=== PATIENT | male | born 1970 | race Caucasian/White ===

== ENCOUNTER 2018-01-11 18:47 | Emergency (ER) | payer BC, OTHER ==
[~2018-01-11] VITALS: Ht 188 cm; Wt 113.3 kg
[~2018-01-11 18:47] MED LIST: AMB10 PO; ATV/1 PO; CLC100 PO; WELBUTRIN PO
[2018-01-11 18:56] VITALS: TEMP 36.6; Ht 188 cm; Wt 113.3 kg
--- NOTE | 2018-01-11 19:07 | EMERGENCY ROOM VISIT NOTE ---
History Report prepared by Elvira: Feltcher Sykes Under the Supervision of: Dr. Felix Jackson M.D. First contact with patient: 18:58 Chief Complaint: SYNCOPE (NEAR SYNCOPE) Stated Complaint: FAINTED History of Present Illness The patient is a 47 year old male who presents to the Emergency Room via EMS with complaints of a syncopal episode that occurred prior to arrival this evening. He states that he had a dental implant surgery yesterday for a sinus cavity with Dr. Pérez, and says that he is on his second dose of his Z-pack. Per the patient's , the patient has not looked well today, and has been in bed all day in a lot of pain. The patient is taking Tylenol Codeine. He says that he felt hot before passing out in his home today, and was sweating. He was on his way to take a shower to cool down, but did not make it, and passed out and fell, and hit his right elbow. He states that he thinks he is dehydrated, and has not been drinking enough water since the surgery. The patient notes that upon ambulance arrival, he walked out and was fine. He denies any shoulder pain, wrist pain, abdominal pain, or swallowing difficulties. 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 Review of Systems See HPI for pertinent positives & negatives. A total of 10 systems reviewed and were otherwise negative. Past Medical & Surgical Medical Problems: (1) HTN (hypertension) Family History Diabetes mellitus Social History Smoking Status: Never Smoker Alcohol Use: none Drug Use: none Marital Status: Housing Status: lives with family Occupation Status: employed Current/Historical Medications Scheduled Aspirin (Aspirin Ec), 81 MG PO DAILY Loratadine (Claritin), 10 MG PO DAILY Metoprolol Tartrate (Lopressor), 25 MG PO BID Metronidazole (Flagyl), 500 MG PO BID Mometasone Furoate (Asmanex Twisthaler 60 Met), 1 PUFF INH DAILY Penicillin V Potassium (Veetids), 500 MG PO QID Scheduled PRN Albuterol Sulfate (Proair Respiclick), 2 PUFFS INH UD PRN for SOB/Wheezing Oxycodone Immediate Rel Tab (Roxicodone Ir), 1-2 TAB PO Q4H PRN for Severe Pain Allergies Coded Allergies: No Known Allergies (Unverified , 01/11/18) Physical Exam Vital Signs Date Time Temp Pulse Resp B/P (MAP) Pulse Ox O2 Delivery O2 Flow Rate FiO2 01/11/18 21:18 66 12 136/105 97 01/11/18 20:45 66 12 136/105 01/11/18 19:20 97 Room Air 01/11/18 19:20 97 Room Air 01/11/18 18:56 36.6 80 18 140/99 97 Room Air Physical Exam GENERAL: Awake, alert, well-appearing, in no acute distress HENT: Poor dentition right upper molar. No evidence of Tony's angina, no evidence of facial cellulitis. EYES: Normal conjunctiva. Sclera non-icteric. NECK: Supple. No nuchal rigidity. FROM. No JVD. RESPIRATORY: Clear to auscultation. CARDIAC: Regular rate, normal rhythm. Extremities warm and well perfused. Pulses equal. ABDOMEN: Soft, non-distended. No tenderness to palpation. No rebound or guarding. No masses. RECTAL: Deferred. MUSCULOSKELETAL: Chest examination reveals no tenderness. The back is symmetrical on inspection without obvious abnormality. There is no CVA tenderness to palpation. No joint edema. LOWER EXTREMITIES: Calves are equal size bilaterally and non-tender. No edema. No discoloration. NEURO: Normal sensorium. No sensory or motor deficits noted. SKIN: No rash or jaundice noted. Medical Decision & Procedures ER Provider Diagnostic Interpretation: Radiology results as stated below per my review and radiologist interpretation: FACIAL-MAXILLOFACIAL WITH CLINICAL HISTORY: 47 years-old Male presenting with Pt c/o Rt molar pain, recent implant placed. TECHNIQUE: Multidetector CT of the face was performed after the administration of intravenous contrast. IV contrast: 117 mL of Optiray 320. A dose lowering technique was used consistent with the principles of ALARA (as low as reasonably achievable). COMPARISON: None. CT DOSE (mGy.cm): The estimated cumulative dose is 864.15. FINDINGS: Wick Tender topogram: Unremarkable. Amalgam in the oral cavity degrades evaluation in this region. Allowing for this, a dental bridge is evident at the central maxillary incisors to the right lateral maxillary incisor. Osseous erosion suggested at the site of the resected right central maxillary incisor (series 3 image 251). Evaluation of the overlying soft tissues for inflammation or abscess is not possible. A dental implant is also noted at the right maxillary second molar, which traverses the inferior floor of the right maxillary sinus. The mandibular teeth are intact. Extensive mucosal thickening of the maxillary sinuses. The right maxillary sinus contains calcified internal debris. Postsurgical changes of the left globe. Vessels patent. Remaining soft tissues of the face within normal limits. Prominent intraparotid lymph nodes noted. Limited intracranial evaluation within normal limits. Upper cervical spine with mild degenerative change. IMPRESSION: 1. Dental bridge across the central maxillary incisors to the right lateral maxillary incisor. At the site of the resected right central maxillary incisor, osseous erosion suggested. This raises concern for infection. Evaluation for overlying inflammation or abscess is not possible secondary to extensive streak artifact. 2. Hyperdense material within the right maxillary sinus accompanied by mucosal thickening could suggest chronic sinusitis. Electronically signed by: Jean Patterson M.D. 01/11/2018 8:11 PM Dictated Date/Time: 01/11/2018 8:04 PM CHEST ONE VIEW PORTABLE CLINICAL HISTORY: 47 years-old Male presenting with CHEST PAIN. TECHNIQUE: Portable upright AP view of the chest was obtained. COMPARISON: None. FINDINGS: Cardiomediastinal silhouette normal. Lungs and pleural spaces clear. Osseous structures normal. Upper abdomen normal. IMPRESSION: 1. No acute cardiopulmonary disease. Electronically signed by: Jean Patterson M.D. 01/11/2018 7:41 PM Dictated Date/Time: 01/11/2018 7:41 PM R ELBOW MIN 3 VIEWS ROUTINE CLINICAL HISTORY: 47 years-old Male presenting with Pt c/o Rt elbow pain. TECHNIQUE: Frontal, oblique, and lateral views of the right elbow were obtained. COMPARISON: None. FINDINGS: A peripheral intravenous catheter projects over the right antecubital fossa. Elbow joint intact. No elbow joint effusion. No acute fracture or malalignment. No advanced degenerative change. No radiographic soft tissue abnormality. IMPRESSION: No acute osseous injury. Electronically signed by: Jean Patterson M.D. 01/11/2018 7:42 PM Dictated Date/Time: 01/11/2018 7:42 PM Laboratory Results 01/11/18 19:17 Red Blood Count 4.98, Mean Corpuscular Volume 90.6, Mean Corpuscular Hemoglobin 33.5, Mean Corpuscular Hemoglobin Concent 37.0, Mean Platelet Volume 10.3, Neutrophils (%) (Auto) 79.3, Lymphocytes (%) (Auto) 9.9, Monocytes (%) (Auto) 8.3, Eosinophils (%) (Auto) 2.1, Basophils (%) (Auto) 0.2, Neutrophils # (Auto) 9.84, Lymphocytes # (Auto) 1.23, Monocytes # (Auto) 1.03, Eosinophils # (Auto) 0.26, Basophils # (Auto) 0.03 01/11/18 19:17 Test 01/11/18 19:17 01/11/18 19:22 White Blood Count 12.41 K/uL (4.8-10.8) Red Blood Count 4.98 M/uL (4.7-6.1) Hemoglobin 16.7 g/dL (14.0-18.0) Hematocrit 45.1 % (42-52) Mean Corpuscular Volume 90.6 fL (80-100) Mean Corpuscular Hemoglobin 33.5 pg (25-34) Mean Corpuscular Hemoglobin Concent 37.0 g/dl (32-36) Platelet Count 164 K/uL (130-400) Mean Platelet Volume 10.3 fL (7.4-10.4) Neutrophils (%) (Auto) 79.3 % Lymphocytes (%) (Auto) 9.9 % Monocytes (%) (Auto) 8.3 % Eosinophils (%) (Auto) 2.1 % Basophils (%) (Auto) 0.2 % Neutrophils # (Auto) 9.84 K/uL (1.4-6.5) Lymphocytes # (Auto) 1.23 K/uL (1.2-3.4) Monocytes # (Auto) 1.03 K/uL (0.11-0.59) Eosinophils # (Auto) 0.26 K/uL (0-0.5) Basophils # (Auto) 0.03 K/uL (0-0.2) RDW Standard Deviation 42.4 fL (36.4-46.3) RDW Coefficient of Variation 12.9 % (11.5-14.5) Immature Granulocyte % (Auto) 0.2 % Immature Granulocyte # (Auto) 0.02 K/uL (0.00-0.02) Anion Gap 7.0 mmol/L (3-11) Est Creatinine Clear Calc Drug Dose 80.4 ml/min Estimated GFR () 62.3 Estimated GFR (Non- 53.8 BUN/Creatinine Ratio 8.9 (10-20) Calcium Level 9.4 mg/dl (8.5-10.1) Total Bilirubin 1.3 mg/dl (0.2-1) Direct Bilirubin 0.2 mg/dl (0-0.2) Aspartate Amino Transf (AST/SGOT) 21 U/L (15-37) Alanine Aminotransferase (ALT/SGPT) 25 U/L (12-78) Alkaline Phosphatase 109 U/L (45-117) Total Protein 8.4 gm/dl (6.4-8.2) Albumin 4.4 gm/dl (3.4-5.0) Lipase 175 U/L (73-393) Bedside Troponin I < 0.030 ng/ml (0-0.045) Labs reviewed by ED physician. Medications Administered Medications (Trade) Dose Ordered Sig/Yusuf Route Start Time Stop Time Status Last Admin Dose Admin Sodium Chloride 1,000 ml @ 999 mls/hr Q1H1M STAT IV 01/11/18 19:08 01/11/18 20:08 DC 01/11/18 19:39 999 MLS/HR Hydromorphone HCl (Dilaudid Inj) 1 mg NOW STAT IV 01/11/18 19:08 01/11/18 19:11 DC 01/11/18 19:39 1 MG Ondansetron HCl (Zofran Inj) 4 mg NOW STAT IV 01/11/18 19:08 01/11/18 19:11 DC 01/11/18 19:39 4 MG Ampicillin Sodium/ Sulbactam Sodium 3000 mg/Sodium Chloride 108 ml @ 200 mls/hr ONE ONCE IV 01/11/18 19:15 01/11/18 19:47 DC 01/11/18 19:50 200 MLS/HR Oxycodone HCl (Roxicodone Immediate Rel 5MG Home Pack) 1 homepack UD ONCE PO 01/11/18 20:45 01/11/18 20:46 DC 01/11/18 21:18 1 HOMEPACK ECG Per My Interpretation Indication: syncope Rate (beats per minute): 94 Rhythm: normal sinus Findings: other (no ST elevation or ST depression) ED Course 1857: Past medical records reviewed. The patient was evaluated in room C12B. A complete history and physical examination was performed. 1907: Zofran Inj 4 mg IV, Dilaudid Inj 1 mg IV, NSS 1000 ml @ 999 mls/hr IV. 1914: Ampicillin Sodium/Sulbactam Sodium 3000 mg/Sodium Chloride 108 ml @ 200 mls/hr IV. 2002: I reevaluated and updated the patient. 2024: I discussed the patient with Dr. Pérez ([phone]) - dentistry - he said that he will see the patient tomorrow. 2044: Upon reexamination the patient is resting. I discussed results and treatment plan with the patient. He verbalizes agreement and understanding. The patient is ready for discharge. Medical Decision Differential diagnosis: Etiologies such as vasovagal event, infection, hypoglycemia, electrolyte abnormalities, cardiac sources, intracerebral event, toxicologic, neurologic, as well as others were entertained. This is a 47-year-old male who presents emergency department after syncopal episode at home. This patient was alerted to me by ambulance 26 who asked for a refusal as the patient is refusing ambulance transport however his is going to bring him in. The patient recently had dental work performed and is complaining of pain. He feels he has not been drinking enough. His creatinine is slightly bumped. For this reason the patient was given normal saline bolus 2. He was started on Unasyn here in the emergency department and sent for a CAT scan of the face. I did review the patient's CAT scan with his dentist who felt that the patient could be safely discharged home for follow-up tomorrow. The patient was also given Dilaudid here in the emergency department. Repeat examination revealed improvement in patient's symptoms. I do feel that the patient is well enough to be discharged home. I will place the patient on penicillin as well as Flagyl. He was also given OxyIR for the pain. Patient and family were in agreement with the treatment plan. Medication Reconcilliation Current Medication List: was personally reviewed by me Blood Pressure Screening Patient's blood pressure: Elevated blood pressure Blood pressure disposition: Elevated BP felt to be situational Consults Time Called: 2019 Consulting Physician: Dr. Pérez - dallin Returned Call: 2024 I discussed the patient with Dr. Beto zamarripa - he said that he will see the patient tomorrow. Impression Primary Impression: Vasovagal episode Scribe Attestation The scribe's documentation has been prepared under my direction and personally reviewed by me in its entirety. I confirm that the note above accurately reflects all work, treatment, procedures, and medical decision making performed by me. Departure Information Dispostion Home / Self-Care Prescriptions Oxycodone Immediate Rel Tab (ROXICODONE IR) 5 Mg Tab 1-2 TAB PO Q4H Y for Severe Pain, #14 TAB Prov: Felix Jackson MD 01/11/18 Metronidazole (Flagyl) 500 Mg Tab 500 MG PO BID, #20 TAB Prov: Felix Jackson MD 01/11/18 Penicillin V Potassium (VEETIDS) 500 Mg Tab 500 MG PO QID, #40 TAB Prov: Felix Jackson MD 01/11/18 Referrals Sariah Zaman M.D. (PCP) Patient Instructions ED Dehydration, ED Syncope Vasovagal, [facility] Additional Instructions You were found to have an elevated blood pressure today (>120 sytolic or >90 diastolic). Per medicare guidelines, you need to follow up with this blood pressure screening with your Primary Care Physician (PCP). For a new PCP call [phone]. You received narcotic or benzodiazepene medication while in the emergency room today. This is an addictive medication that may cause drowziness as well as constipation. Do not drive, operate heavy machinery, or drink alcohol under the influence of this medication. Take 600 mg Ibuprofen every 6 hours Take Percocet for breakthrough pain Radiographs and CTs will be reread by a radiologist in the morning. Culture results are usually available in approx 48 hours You have been examined and treated today on an emergency basis only. This is not a substitute for, or an effort to provide, complete comprehensive medical care. It is impossible to recognize and treat all injuries or illnesses in a single emergency department visit. It is therefore important that you follow up closely with [facility]. Call as soon as possible for an appointment. Thank you for your time and consideration. I look forward to speaking with you again soon. Please don't hesitate to call us if you have any questions.
[2018-01-11] MEDS ORDERED: HYDROmorphone INJ 1 MG/ML SYR IV STA (19:08)
[2018-01-11] MEDS ORDERED: SODIUM CHLORIDE 0.9% 1000ML 1,000 ML IV STA ×2 (19:08→19:45)
[2018-01-11] MEDS ORDERED: ONDANSETRON INJ 2 MG/ML 2 ML VIAL IV STA (19:08)
[2018-01-11] MEDS ORDERED: AMPICILLIN/SULBACTAM SOD INJ 3,000 MG in SODIUM CHLORIDE 0.9% 100ML 100 ML IV ONE (19:15)
[2018-01-11 19:20] VITALS: O2SAT 97
[2018-01-11 19:25] LABS: BASO % 0.2 %; BASO ABS # 0.03 K/uL (0-0.2); EOS % 2.1 %; EOS ABS # 0.26 K/uL (0-0.5); HEMATOCRIT 45.1 % (42-52); HEMOGLOBIN 16.7 g/dL (14.0-18.0); IG# 0.02 K/uL (0.00-0.02); LYMPH % 9.9 %; LYMPH ABS # 1.23 K/uL (1.2-3.4); MEAN CELL VOLUME 90.6 fL (80-100); MEAN CORPUSCULAR HEMOGLOBIN 33.5 pg (25-34); MEAN PLATELET VOLUME 10.3 fL (7.4-10.4); MONO % 8.3 %; MONO ABS # 1.03 K/uL (0.11-0.59); NEUT % 79.3 %; NEUT ABS # 9.84 K/uL (1.4-6.5); PLATELET COUNT 164 K/uL (130-400); RED CELL DISTRIBUTION WIDTH CV 12.9 % (11.5-14.5); RED CELL DISTRIBUTION WIDTH SD 42.4 fL (36.4-46.3); WHITE BLOOD COUNT 12.41 K/uL (4.8-10.8)
[2018-01-11] MEDS ORDERED: ASPI81TA28 PO (19:38)
[2018-01-11] MEDS ORDERED: ALBU18002 INH (19:38)
[2018-01-11] MEDS ORDERED: METO25TA4 PO (19:38)
[2018-01-11] MEDS ORDERED: CLR10 PO (19:38)
[2018-01-11] MEDS ORDERED: ASMIN/60 INH (19:40)
[2018-01-11] MEDS ORDERED: LPR25 PO (19:40)
[2018-01-11 19:42] LABS: ALBUMIN 4.4 gm/dl (3.4-5.0); CALCIUM 9.4 mg/dl (8.5-10.1); CREATININE 1.52 mg/dl (0.60-1.40); POTASSIUM 3.5 mmol/L (3.5-5.1)
--- NOTE | 2018-01-11 19:43 | DIAGNOSTIC IMAGING REPORT ---
CHEST ONE VIEW PORTABLE CLINICAL HISTORY: 47 years-old Male presenting with CHEST PAIN. TECHNIQUE: Portable upright AP view of the chest was obtained. COMPARISON: None. FINDINGS: Cardiomediastinal silhouette normal. Lungs and pleural spaces clear. Osseous structures normal. Upper abdomen normal. IMPRESSION: 1. No acute cardiopulmonary disease. Electronically signed by: Jean Patterson M.D. 01/11/2018 7:41 PM Dictated Date/Time: 01/11/2018 7:41 PM
--- NOTE | 2018-01-11 19:44 | DIAGNOSTIC IMAGING REPORT ---
R ELBOW MIN 3 VIEWS ROUTINE CLINICAL HISTORY: 47 years-old Male presenting with Pt c/o Rt elbow pain. TECHNIQUE: Frontal, oblique, and lateral views of the right elbow were obtained. COMPARISON: None. FINDINGS: A peripheral intravenous catheter projects over the right antecubital fossa. Elbow joint intact. No elbow joint effusion. No acute fracture or malalignment. No advanced degenerative change. No radiographic soft tissue abnormality. IMPRESSION: No acute osseous injury. Electronically signed by: Jean Patterson M.D. 01/11/2018 7:42 PM Dictated Date/Time: 01/11/2018 7:42 PM
[2018-01-11 19:45] LABS: TOTAL PROTEIN 8.4 gm/dl (6.4-8.2)
--- NOTE | 2018-01-11 20:12 | DIAGNOSTIC IMAGING REPORT ---
FACIAL-MAXILLOFACIAL WITH CLINICAL HISTORY: 47 years-old Male presenting with Pt c/o Rt molar pain, recent implant placed. TECHNIQUE: Multidetector CT of the face was performed after the administration of intravenous contrast. IV contrast: 117 mL of Optiray 320. A dose lowering technique was used consistent with the principles of ALARA (as low as reasonably achievable). COMPARISON: None. CT DOSE (mGy.cm): The estimated cumulative dose is 864.15. 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 Amalgam in the oral cavity degrades evaluation in this region. Allowing for this, a dental bridge is evident at the central maxillary incisors to the right lateral maxillary incisor. Osseous erosion suggested at the site of the resected right central maxillary incisor (series 3 image 251). Evaluation of the overlying soft tissues for inflammation or abscess is not possible. A dental implant is also noted at the right maxillary second molar, which traverses the inferior floor of the right maxillary sinus. The mandibular teeth are intact. Extensive mucosal thickening of the maxillary sinuses. The right maxillary sinus contains calcified internal debris. Postsurgical changes of the left globe. Vessels patent. Remaining soft tissues of the face within normal limits. Prominent intraparotid lymph nodes noted. Limited intracranial evaluation within normal limits. Upper cervical spine with mild degenerative change. IMPRESSION: 1. Dental bridge across the central maxillary incisors to the right lateral maxillary incisor. At the site of the resected right central maxillary incisor, osseous erosion suggested. This raises concern for infection. Evaluation for overlying inflammation or abscess is not possible secondary to extensive streak artifact. 2. Hyperdense material within the right maxillary sinus accompanied by mucosal thickening could suggest chronic sinusitis. Electronically signed by: Jean Patterson M.D. 01/11/2018 8:11 PM Dictated Date/Time: 01/11/2018 8:04 PM
[2018-01-11] MEDS ORDERED: OPTIRAY 320 IV PRN (20:15)
[2018-01-11] MEDS ORDERED: METR-163 PO (20:36)
[2018-01-11] MEDS ORDERED: PENI500T2 PO (20:36)
[2018-01-11] MEDS ORDERED: OXYC1TAB3 PO (20:43)
[2018-01-11] MEDS ORDERED: OXYCODONE IR HOME PACK PO ONE (20:45)
[2018-01-11 21:18] VITALS: BP 136/105; PULSE 66; O2SAT 97
== END 2018-01-11 21:19 | disposition home or self-care (01) ==
LOC: C.EDB 18:48 → C.EDC 21:19
DX: R55 Syncope and collapse (principal); I10 Essential (primary) hypertension; Z79.82 Long term (current) use of aspirin; Z79.899 Other long term (current) drug therapy

== ENCOUNTER → 2018-01-27 | Outpatient (CLI) | payer OTHER ==
[~2018-01-27] MED LIST changes: +ALBU18002 INH; -AMB10 PO; +ASMIN/60 INH; +ASPI81TA28 PO; -ATV/1 PO; -CLC100 PO; +CLR10 PO; +LPR25 PO; +METR-163 PO; +OXYC1TAB3 PO; -WELBUTRIN PO
--- NOTE | 2018-01-27 12:07 | DIAGNOSTIC IMAGING REPORT ---
PET/CT SKULL-THIGH CLINICAL HISTORY: SARCOMA COMPARISON STUDY: None FINDINGS: The patient was injected with 13.4 mCi of F-18 labeled FDG. Findings standard induction phase, PET/CT scanning was performed from the skull base to the upper thigh region. Uptake within the neck is felt to be physiologic. There is polypoid max or sinuses mucosal thickening. Within the chest, there is no pathologic mediastinal, hilar, or axillary hermes activity. There is no pathologic pulmonary parenchymal activity. There are postsurgical changes involving the left chest wall. Within the abdomen and pelvis, there is physiologic urinary tract and bowel activity. There is no pathologic hermes activity. IMPRESSION: 1. Postsurgical changes involving the left chest wall 2. No PET/CT evidence of metastatic disease. Electronically signed by: Aron Jordan M.D. 01/27/2018 12:05 PM Dictated Date/Time: 01/27/2018 11:59 AM
== END | disposition home or self-care (01) ==
LOC: C.PET 08:09
PROVIDERS: ATTEND Family Medicine
DX: C41.3 Malignant neoplasm of ribs, sternum and clavicle (principal)